=== PATIENT | female | born 1965 | race Caucasian/White ===

== ENCOUNTER 2018-04-01 16:31 | Inpatient (IN) | payer OTHER ==
[~2018-04-01] VITALS: Ht 175.3 cm; Wt 110.8 kg
[~2018-04-01 16:31] MED LIST: ACET-1600 PO; ALBU8.5H8 INH; ATEN100T PO; CALC0.25 PO; CYCL5TAB PO; DIPH25CA61 PO; DOXE2.5C4 PO; IBUP-1222 PO; OXYC1TAB7 PO; PRED20TA PO; SPIR25TA3 PO; SULF1TAB23 PO; THYR120T PO; THYR180T PO; THYR240T PO; TRAZ50TA18 PO
[2018-04-01] MEDS ORDERED: ACETAMINOPHEN 500 MG TABLET PO ONE ×2 (17:30→20:00)
[2018-04-01] MEDS ORDERED: ONDANSETRON 2MG/ML, 2ML IVPush ONE (17:30)
[2018-04-01] MEDS ORDERED: IBUP-1484 PO (17:39)
[2018-04-01] MEDS ORDERED: ONDANSETRON ODT 4 MG ONE (17:54)
[2018-04-01] MEDS ORDERED: ACETAMINOPHEN 500 MG TABLET ONE (17:54)
[2018-04-01 18:15] LABS: MEAN CORPUSCULAR HEMOGLOBIN 29.6 pg (27.0-34.8); MEAN CORPUSCULAR HGB CONC 32.6 g/dL (32.4-35.8); MEAN CORPUSCULAR VOLUME 90.7 fL (80-100); MEAN PLATELET VOLUME 7.4 fL (7.4-10.4); PLATELET COUNT 524 x10^3/uL (130-400); RED BLOOD COUNT 4.04 x10^6/uL (3.82-5.3); RED CELL DISTRIBUTION WIDTH 14.3 % (9.6-15.2)
[2018-04-01 18:25] LABS: ALBUMIN 2.8 g/dL (3.4-5.0); ANION GAP 8 mmol/L (5-15); CALCIUM 7.9 mg/dL (8.5-10.1); CHLORIDE 106 mmol/L (98-107); SALICYLATE LEVEL 2.5 mg/dL (2.8-20.0)
[2018-04-01] MEDS ORDERED: ONDANSETRON ODT 4 MG PO ONE (18:30)
[2018-04-01 18:35] LABS: ACETAMINOPHEN < 2 mcg/mL (10-30); ALANINE AMINOTRANSFERASE 21 U/L (12-78); ALKALINE PHOSPHATASE 65 U/L (45-117); BILIRUBIN,TOTAL 0.2 mg/dL (0.2-1.0); CREATININE 1.31 mg/dL (0.55-1.02); FREE T4 (FREE THYROXINE) 0.74 ng/dL (0.76-1.46); THYROID STIMULATING HORMONE 0.009 mIU/L (0.358-3.740); TOTAL PROTEIN 6.3 g/dL (6.4-8.2)
[2018-04-01 18:53] LABS: MD YES
[2018-04-01 18:58] LABS: LYMPH#(MANUAL) 2.68 x10^3/uL (1-3.4); LYMPHS% (MANUAL) 13 % (22-44); MONOS#(MANUAL) 1.85 x10^3/uL (0.3-2.7); MONOS% (MANUAL) 9 % (2-9); SEG#(MANUAL) 16.07 x10^3/uL (1.8-6.8); SEGS% (MANUAL) 78 % (42-75)
[2018-04-01 18:59] LABS: <PLATELET ESTIMATE> INCREASED; <PLT MORPHOLOGY> NORMAL PLT MORPH; <RBC MORPHOLOGY> NORMAL
[2018-04-01 18:59] LABS: MICROSCOPIC AUTO
[2018-04-01 19:00] LABS: AMPHETAMINE SCREEN, URINE Negative (Negative); BARBITURATE SCREEN, URINE Negative (Negative); BENZODIAZEPINE SCREEN, URINE Negative (Negative); CANNABINOID SCREEN, URINE Negative (Negative); COCAINE SCREEN, URINE Negative (Negative); METHADONE SCREEN, URINE Negative (Negative); OPIATE SCREEN, URINE Negative (Negative)
[2018-04-01 19:03] LABS: CULTURE INDICATED? YES
[2018-04-01] MEDS ORDERED: CEFTRIAXONE PMX 1GM/50ML 50 ML ONE (19:21)
[2018-04-01] MEDS ORDERED: KETOROLAC 30 MG/1 ML ONE (19:21)
[2018-04-01] MEDS ORDERED: KETOROLAC 30 MG/1 ML IVPush ONE (20:00)
[2018-04-01] MEDS ORDERED: KETOROLAC 60 MG/2 ML IM ONE (20:00)
[2018-04-01] MEDS ORDERED: FAMOTIDINE 20 MG/2 ML IVP ONE (20:00)
[2018-04-01] MEDS ORDERED: SODIUM CHLORIDE 0.9% 1,000ML IVBOLUS ONE (20:00)
[2018-04-01] MEDS ORDERED: CEFTRIAXONE 1,000 MG in DEXTROSE 5% 50 ML IV SCH (20:00)
[2018-04-01] MEDS: CEFTRIAXONE 1,000 MG in SODIUM CHLORIDE 0.9% 50 ML IV SCH (20:30)
[2018-04-01] MEDS ORDERED: BISACODYL 10 MG SUPP PR PRN (20:30)
[2018-04-01] MEDS ORDERED: POLYETHYLENE GLYCOL 17 GM PACKET PO PRN (20:30)
[2018-04-01] MEDS ORDERED: ONDANSETRON 2MG/ML, 2ML IVPush PRN (20:30)
[2018-04-01] MEDS ORDERED: IBUPROFEN 200 MG TABLET PO SCH (21:00)
[2018-04-01] MEDS ORDERED: METOCLOPRAMIDE 5 MG/ML, 2ML IVPush ONE (21:00)
[2018-04-01 21:07] VITALS: BP 127/80
[2018-04-01] MEDS: SPIRONOLACTONE 25 MG TABLET PO SCH (21:37)
[2018-04-01] MEDS: ATENOLOL 50 MG TABLET PO SCH (21:38)
[2018-04-01] MEDS: HEPARIN 5,000 UNITS/ML, 1ML SQ SCH (21:39)
[2018-04-01] MEDS: SODIUM CHLORIDE 0.9% 1,000 ML IV SCH (21:40)
[2018-04-02] MEDS: ACETAMINOPHEN 325 MG TABLET PO PRN ×4 (00:22→13:19)
[2018-04-02 01:00] VITALS: BP 133/84
[2018-04-02] MEDS: KETOROLAC 30 MG/1 ML IVPush PRN ×3 (01:25→13:51)
[2018-04-02 05:36] LABS: BASOPHILS # (AUTO) 0.04 x10^3/uL (0-0.1); BASOPHILS % (AUTO) 0 % (0-1); EOSINOPHILS # (AUTO) 0.09 x10^3/uL (0-0.4); EOSINOPHILS % (AUTO) 1 % (1-7); LYMPHOCYTES # (AUTO) 2.07 x10^3/uL (1-3.4); LYMPHOCYTES % (AUTO) 13 % (22-44); MD NO; MEAN CORPUSCULAR HEMOGLOBIN 30.3 pg (27.0-34.8); MEAN CORPUSCULAR HGB CONC 33.4 g/dL (32.4-35.8); MEAN CORPUSCULAR VOLUME 90.9 fL (80-100); MEAN PLATELET VOLUME 7.5 fL (7.4-10.4); MONOCYTES # (AUTO) 1.06 x10^3/uL (0.2-0.8); MONOCYTES % (AUTO) 7 % (2-9); NEUTROPHILS # (AUTO) 12.43 x10^3/uL (1.8-6.8); NEUTROPHILS % (AUTO) 79 % (42-75); PLATELET COUNT 440 x10^3/uL (130-400); RED BLOOD COUNT 3.76 x10^6/uL (3.82-5.3); RED CELL DISTRIBUTION WIDTH 14.5 % (9.6-15.2)
[2018-04-02] MEDS: NP THYROID 60 MG PO SCH ×2 (05:46→07:29)
[2018-04-02] MEDS: HEPARIN 5,000 UNITS/ML, 1ML SQ SCH ×3 (05:46→21:42)
[2018-04-02] MEDS: THYROID 180 MG PO SCH ×2 (05:47→07:29)
[2018-04-02 05:53] LABS: ALBUMIN 2.6 g/dL (3.4-5.0); ANION GAP 8 mmol/L (5-15); CHLORIDE 106 mmol/L (98-107)
[2018-04-02 05:56] LABS: ALANINE AMINOTRANSFERASE 17 U/L (12-78); ALKALINE PHOSPHATASE 66 U/L (45-117); BILIRUBIN,TOTAL 0.2 mg/dL (0.2-1.0); CREATININE 1.34 mg/dL (0.55-1.02); TOTAL PROTEIN 5.8 g/dL (6.4-8.2)
[2018-04-02] MEDS ORDERED: THYROID HOMEMEDPO SCH (06:00)
[2018-04-02 06:44] VITALS: BP 121/79
[2018-04-02] MEDS: DOXERCALCIFEROL 2.5 MCG CAPSULE PO SCH (07:29)
[2018-04-02] MEDS: SENNA/DOCUSATE TABLET PO SCH (07:31)
[2018-04-02] MEDS: SPIRONOLACTONE 25 MG TABLET PO SCH ×2 (07:31→21:42)
[2018-04-02] MEDS: ATENOLOL 50 MG TABLET PO SCH ×2 (07:31→21:42)
[2018-04-02] MEDS: SODIUM CHLORIDE 0.9% 1,000 ML IV SCH ×2 (07:31→21:42)
[2018-04-02] MEDS ORDERED: ERGOCALCIFEROL 50,000 UNIT CAPSULE PO SCH (09:00)
[2018-04-02] MEDS ORDERED: GADOBUTROL 10 MMOL/10 ML VIAL ONE (09:37)
[2018-04-02 09:44] LABS: HCT (SEDRATE) 34.2 % (34.6-47.8)
[2018-04-02 13:45] VITALS: BP 165/84
[2018-04-02] MEDS ORDERED: SODIUM CHLORIDE 0.9% 1,000ML IVBOLUS ONE (18:00)
[2018-04-02] MEDS ORDERED: PROCHLORPERAZINE 5 MG/ML, 2ML IVPush ONE (18:00)
[2018-04-02] MEDS ORDERED: ACETAMINOPHEN 500 MG TABLET PO ONE (18:00)
[2018-04-02] MEDS ORDERED: DIPHENHYDRAMINE 50 MG/ML, 1ML IVPush ONE (18:00)
[2018-04-02] MEDS: CEFTRIAXONE 1,000 MG in SODIUM CHLORIDE 0.9% 50 ML IV SCH (21:42)
[2018-04-03 00:56] VITALS: BP 138/76
[2018-04-03 05:50] LABS: MEAN CORPUSCULAR HEMOGLOBIN 30.2 pg (27.0-34.8); MEAN CORPUSCULAR HGB CONC 33.3 g/dL (32.4-35.8); MEAN CORPUSCULAR VOLUME 90.8 fL (80-100); MEAN PLATELET VOLUME 7.4 fL (7.4-10.4); PLATELET COUNT 432 x10^3/uL (130-400); RED BLOOD COUNT 3.62 x10^6/uL (3.82-5.3); RED CELL DISTRIBUTION WIDTH 14.5 % (9.6-15.2)
[2018-04-03 05:51] LABS: ANION GAP 8 mmol/L (5-15); CALCIUM 7.9 mg/dL (8.5-10.1); CHLORIDE 108 mmol/L (98-107); CREATININE 1.18 mg/dL (0.55-1.02)
[2018-04-03 06:29] LABS: BASOPHILS # (AUTO) 0.03 x10^3/uL (0-0.1); BASOPHILS % (AUTO) 0 % (0-1); EOSINOPHILS # (AUTO) 0.07 x10^3/uL (0-0.4); EOSINOPHILS % (AUTO) 0 % (1-7); LYMPHOCYTES # (AUTO) 1.76 x10^3/uL (1-3.4); LYMPHOCYTES % (AUTO) 11 % (22-44); MD SCAN; MONOCYTES # (AUTO) 1.91 x10^3/uL (0.2-0.8); MONOCYTES % (AUTO) 12 % (2-9); NEUTROPHILS # (AUTO) 12.14 x10^3/uL (1.8-6.8); NEUTROPHILS % (AUTO) 76 % (42-75)
[2018-04-03] MEDS: THYROID 180 MG PO SCH (07:09)
[2018-04-03] MEDS: SODIUM CHLORIDE 0.9% 1,000 ML IV SCH (07:09)
[2018-04-03] MEDS: HEPARIN 5,000 UNITS/ML, 1ML SQ SCH (07:09)
[2018-04-03] MEDS: NP THYROID 60 MG PO SCH (07:09)
[2018-04-03 07:16] VITALS: BP 119/58
[2018-04-03] MEDS: ACETAMINOPHEN 325 MG TABLET PO PRN (07:40)
[2018-04-03] MEDS: SENNA/DOCUSATE TABLET PO SCH (09:00)
[2018-04-03] MEDS: DOXERCALCIFEROL 2.5 MCG CAPSULE PO SCH (09:00)
[2018-04-03] MEDS ORDERED: CEFD300C37 PO (09:26)
[2018-04-03] MEDS: SPIRONOLACTONE 25 MG TABLET PO SCH (10:28)
[2018-04-03] MEDS: ATENOLOL 50 MG TABLET PO SCH (10:28)
== END 2018-04-03 10:45 | disposition home or self-care (01) | DRG 690 ==
LOC: ED 19:38 → EDIP 19:43 → ED 19:52 → 3NE 20:56 → DCLOUNGE 04-03 10:43
PROVIDERS: ADMIT Internal Medicine; ATTEND Internal Medicine
DX: N12 Tubulo-interstitial nephritis, not specified as acute or chronic (principal); E44.0 Moderate protein-calorie malnutrition; E53.8 Deficiency of other specified B group vitamins; E55.9 Vitamin D deficiency, unspecified; E89.0 Postprocedural hypothyroidism; F32.9 Major depressive disorder, single episode, unspecified; I11.9 Hypertensive heart disease without heart failure; Z68.36 Body mass index [BMI] 36.0-36.9, adult; Z86.61 Personal history of infections of the central nervous system; Z87.891 Personal history of nicotine dependence; Z90.710 Acquired absence of both cervix and uterus; Z90.89 Acquired absence of other organs; R79.89 Other specified abnormal findings of blood chemistry
CPT/HCPCS: 36415; 70450; 70553; 80048; 80053; 80307; 80329; 81001; 82140; 82306; 82607; 84439; 84443; 84481; 85025; 85651; 86140; 87040; 87077; 87086; 87186; 93005; 95819; 96365; 96375; A9585; J0696; J1644; J1885; J2405; Q0162; G0480; J0780; J1200; J2765; J7030